=== PATIENT | male | born 1975 | race Caucasian/White ===

== ENCOUNTER 2020-04-30 22:13 | Emergency (ER) | payer OTHER ==
[~2020-04-30] VITALS: Ht 180.3 cm; Wt 103.4 kg
[2020-04-30] MEDS ORDERED: ATACAND32 MG (22:44)
== END 2020-05-01 00:19 | disposition home or self-care (01) ==
LOC: ER 22:13 → EDBD 22:47 → ER 22:47
DX: R00.2 Palpitations (principal)

== ENCOUNTER 2021-01-10 23:29 | Emergency (ER) | payer OTHER ==
[~2021-01-10] VITALS: Ht 182.9 cm; Wt 104.3 kg
[~2021-01-10 23:29] MED LIST: ATACAND32 MG
== END 2021-01-11 05:55 ==
LOC: ER 23:29
DX: R00.2 Palpitations (principal); R06.02 Shortness of breath; Z03.818 Encounter for observation for suspected exposure to other biological agents ruled out